=== PATIENT | male | born 1955 | race Caucasian/White ===

== ENCOUNTER → 2020-01-10 11:00 | Outpatient (BNVA) | payer SELFPAY | PROVIDERS: Family Provider Nurse Practitioner Family; PCP Nurse Practitioner Family; Visit Provider Nurse Practitioner Family | DX: E11.9 Type 2 diabetes mellitus without complications (principal) | CPT/HCPCS: 80053 ==

== ENCOUNTER → 2020-07-09 09:17 | Outpatient (BNVA) | payer SELFPAY | PROVIDERS: Family Provider Nurse Practitioner Family; PCP Dermatology; Visit Provider Nurse Practitioner Family | DX: E11.9 Type 2 diabetes mellitus without complications (principal) | CPT/HCPCS: 80053; 81003; 83036 ==

== ENCOUNTER → 2021-07-27 08:22 | Outpatient (BNVA) | payer SELFPAY | PROVIDERS: Family Provider Nurse Practitioner Family; PCP Nurse Practitioner Family; Visit Provider Dermatology | DX: Z01.89 Encounter for other specified special examinations (principal) ==

== ENCOUNTER → 2022-04-19 08:15 | Outpatient (BNVA) | payer SELFPAY | PROVIDERS: Family Provider Nurse Practitioner Family; PCP Nurse Practitioner Family; Visit Provider Dermatology | DX: Z01.89 Encounter for other specified special examinations (principal) ==

== ENCOUNTER → 2022-09-13 10:13 | Outpatient (BNVA) | payer MEDICARE, SELFPAY | PROVIDERS: Family Provider Nurse Practitioner Family; PCP Nurse Practitioner Family; Visit Provider Nurse Practitioner Family | DX: R05.9 Cough, unspecified (principal); Z20.822 Contact with and (suspected) exposure to COVID-19 | CPT/HCPCS: 87426 ==

== ENCOUNTER → 2022-10-18 08:34 | Outpatient (BNVA) | payer SELFPAY | PROVIDERS: Family Provider Nurse Practitioner Family; PCP Nurse Practitioner Family; Visit Provider Dermatology | DX: Z01.89 Encounter for other specified special examinations (principal) ==

== ENCOUNTER 2023-07-13 08:29 | Day surgery (SDC) | payer MEDICARE, SELFPAY ==
[2023-07-11 10:06] VITALS: BMI 34.9
[2023-07-13 08:46] VITALS: BP 154/90; PULSE 73; RESP 18; TEMP 36.4; O2SAT 96
[2023-07-13] MEDS: sodium chloride 0.9% 1,000 ML 30 ML IV (09:00)
--- NOTE | 2023-07-13 09:06 | P.ANESASSM_ITS ---
Pre-Anesthetic Assessment Height/Weight: Height 1.8 m Weight 113.852 kg Temp Pulse Resp BP Pulse Ox O2 Del Method 97.6 F 73 18 154/90 96 Room Air 07/13/23 08:46 07/13/23 08:46 07/13/23 08:46 07/13/23 08:46 07/13/23 08:46 07/13/23 08:46 Preop Diagnosis: screening Operation Date: 07/13/23 09:50 Proposed Procedures p Colonoscopy 35423,Z12.11(Not Applicable) - Robson Espinosa MD Familial anesthetic complications: none Was Beta Yazan taken within 24 hours: N/A Was Clonidine taken within 24 hours: N/A Last intake: Intake Last Liquid Date 07/12/23 Last Liquid Time 22:00 Last Solid Date 07/11/23 Last Solid Time 17:00 Last Intake: 22:00 Social No alcohol and No tobacco Exam alert, oriented x 3, clear to auscultation bilaterally and regular rate & rhythm Airway Submandibular: within normal limits Cervical ROM: within normal limits Mallampati: Class II Dentition: false (upper) Pulmonary None reported CV/HEM Hypertension Urinary Tract Infection Hepatic None reported GI None reported Metabolic Diabetes Mellitus (BS avg 200ish) and Morbid Obesity [facility] [place] None reported Neuropsych None reported Anesthetic Plan ASA status: 3 Anesthesia: MAC Risk of > 500 ml blood loss (7ml/kg in children): No Medications/Allergies Home Medications Medication Instructions Recorded Confirmed Last Taken Type lisinopril 20 mg tablet See Rx Instructions .Route 09/23/22 07/13/23 07/11/23 Rx .COMPLEX #90 tabs atorvastatin 20 mg tablet 20 mg PO DAILY 07/11/23 07/13/23 07/11/23 History glyburide 5 mg tablet 20 mg PO DAILY 07/11/23 07/13/23 07/11/23 History insulin glargine 100 unit/mL (3 20 unit SUBCUT BID 07/11/23 07/13/23 07/12/23 History mL) subcutaneous pen (Lantus Solostar U-100 Insulin) metformin 1,000 mg tablet 1,000 mg PO BID 07/11/23 07/13/23 07/11/23 History Allergies Allergy/AdvReac Type Severity Reaction Status Date / Time No Known Allergies Allergy Verified 07/13/23 08:43 Current Medications Generic Name Dose Route Start Last Admin Trade Name Howardq PRN Reason Stop Dose Admin Sodium Chloride 1,000 mls @ 30 mls/hr 07/13/23 08:45 07/13/23 09:00 Sodium Chloride 0.9% IV 30 mls/hr .Q24H EITAN Administration PFSH Anesthesia Medical History Cough COVID-19 virus infection Diabetes mellitus, type II Essential hypertension Mixed hyperlipidemia Social History Smoking and tobacco status: current every day smoker Data Anesthesia Cardiac Studies: No Data to Display
[2023-07-13 09:10] LABS: Glucose Point of Care 141 mg/dL (70-110)
--- NOTE | 2023-07-13 09:25 | W.PM.OPSFHP ---
Same Day Surgery H&P Indication for Procedure/HPI DATE OF PROCEDURE: July 13, 2023 CHIEF COMPLAINT/INDICATIONFOR SURGICAL PROCEDURE: Need for screening colonoscopy PREOP DIAGNOSIS: screening PLANNED PROCEDURE: Operation Date: 07/13/23 09:50 Proposed Procedures p Colonoscopy 07685,Z12.11(Not Applicable) - Robson Espinosa MD asymptomatic patient, with brother who had colon cancer, presents for screening. Medications/Allergies* Home Medications Medication Instructions Recorded Confirmed Type atorvastatin 20 mg tablet 20 mg PO DAILY 07/11/23 07/13/23 History glyburide 5 mg tablet 20 mg PO DAILY 07/11/23 07/13/23 History insulin glargine 100 unit/mL (3 20 unit SUBCUT BID 07/11/23 07/13/23 History mL) subcutaneous pen (Lantus Solostar U-100 Insulin) metformin 1,000 mg tablet 1,000 mg PO BID 07/11/23 07/13/23 History Allergies/Adverse Reactions Allergy/AdvReac Type Severity Reaction Status Date / Time No Known Allergies Allergy Verified 07/13/23 08:43 Current Medications: Generic Name Dose Route Start Last Admin Trade Name Freq PRN Reason Stop Dose Admin Sodium Chloride 1,000 mls @ 30 mls/hr 07/13/23 08:45 07/13/23 09:00 Sodium Chloride 0.9% IV 30 mls/hr .Q24H EITAN Administration Pertinent History/Comorbid Conditions* Medical History (Updated 10/19/21 @ 13:24 by EVELINA Sandy) Cough COVID-19 virus infection Diabetes mellitus, type II Essential hypertension Mixed hyperlipidemia Social History Smoking and tobacco status: current every day smoker Pertinent Exam Findings alert, oriented x 3, clear to auscultation bilaterally, regular rate & rhythm and procedure specific exam findings (Abdominal exam is benign) Recommendations Surgery/Procedure today Other Plans: After a complete history, physical examination and review of all available clinical data. I have offer screening colonoscopy as indicated by the current guidelines. I have discussed all the risks and benefits of the colonoscopy. Including, the risk of perforation requiring surgical intervention, rectal bleeding, incomplete colonoscopy requiring repeat procedure in 3 months, missed polyps, need for additional procedures. Patient shows understanding and wishes to proceed. Coding Level of Care Code Acute Code for Chg Fwd Diagnoses
[2023-07-13 10:14] VITALS: BP 144/88; PULSE 67; RESP 16; TEMP 36.3; O2SAT 98
[2023-07-13 10:22] VITALS: BP 119/78; PULSE 68; RESP 18; O2SAT 98
[2023-07-13 10:28] VITALS: BP 138/86; PULSE 69; RESP 18; O2SAT 96
--- NOTE | 2023-07-13 10:45 | ANE.PACU2 ---
Inpatient post-anesthesia follow up: Airway intact: Yes Vital signs: Temperature 97.3 F Pulse Rate 69 Respiratory Rate 18 Blood Pressure 138/86 Pulse Oximetry 96 Oxygen Delivery Me thod Room Air Oxygen Flow Rate 3 Fraction of Inspir ed Oxygen Hydration adequate: Yes Nausea and vomiting: No Pain level: 1 Mental status: Baseline
== END 2023-07-13 10:47 | disposition home or self-care (01) ==
PROVIDERS: PCP Family Medicine; Visit Provider Surgery
PROC: 0DJD8ZZ Inspection of Lower Intestinal Tract, Via Natural or Artificial Opening Endoscopic (ICD-10-PCS; CPT 45378; principal; 2023-07-13 09:50)
DX: Z12.11 Encounter for screening for malignant neoplasm of colon (principal); K57.30 Diverticulosis of large intestine without perforation or abscess without bleeding; I10 Essential (primary) hypertension; E11.9 Type 2 diabetes mellitus without complications; E66.01 Morbid (severe) obesity due to excess calories; Z68.35 Body mass index [BMI] 35.0-35.9, adult; Z79.84 Long term (current) use of oral hypoglycemic drugs; Z86.16 Personal history of COVID-19; E78.2 Mixed hyperlipidemia; F17.210 Nicotine dependence, cigarettes, uncomplicated
CPT/HCPCS: 36416; 82962; G0121; J2704; J7030

== ENCOUNTER 2023-10-09 09:37 | Outpatient (CLI) | payer MEDICARE, SELFPAY ==
--- NOTE | 2023-10-09 09:43 | XRR_ITS ---
PROCEDURE INFORMATION: Exam: XR Right Hand Exam date and time: 10/09/2023 9:53 AM Age: 68 years old Clinical indication: Pain; Hand; Right; Additional info: R finger pain TECHNIQUE: Imaging protocol: Radiologic exam of the right hand. Views: 1 or 2 views. COMPARISON: No relevant prior studies available. FINDINGS: Bones/joints: Mildly distracted long finger dorsal distal phalanx base mallet type fracture. Remaining joints are maintained. Soft tissues: Unremarkable. XR/XR hand RT 2V [id number] IMPRESSION: Mildly distracted long finger distal phalanx base mallet type fracture.
== END 2023-10-09 09:38 | disposition home or self-care (01) ==
LOC: RAD 09:38
PROVIDERS: PCP Family Medicine; Visit Provider Nurse Practitioner Family
DX: S62.632A Displaced fracture of distal phalanx of right middle finger, initial encounter for closed fracture (principal); X58.XXXA Exposure to other specified factors, initial encounter
CPT/HCPCS: 73120

== ENCOUNTER 2023-10-13 06:00 | Outpatient (CLI) | payer MEDICARE, SELFPAY | END 2023-10-13 23:59 | disposition home or self-care (01) | LOC: SOT 10-29 21:08 | PROVIDERS: PCP Family Medicine; Visit Provider Student in an Organized Health Care Education/Training Program | DX: Z46.89 Encounter for fitting and adjustment of other specified devices (principal); S62.609D Fracture of unspecified phalanx of unspecified finger, subsequent encounter for fracture with routine healing; X58.XXXD Exposure to other specified factors, subsequent encounter | CPT/HCPCS: 26750; 97760; 99204; L3925 ==

== ENCOUNTER → 2023-10-13 09:02 | Outpatient (BNVA) | payer MEDICARE, SELFPAY | PROVIDERS: PCP Family Medicine; Visit Provider Student in an Organized Health Care Education/Training Program | DX: M20.011 Mallet finger of right finger(s); S62.662A Nondisplaced fracture of distal phalanx of right middle finger, initial encounter for closed fracture; W22.8XXA Striking against or struck by other objects, initial encounter | CPT/HCPCS: 73130 ==

== ENCOUNTER → 2023-12-20 13:13 | Outpatient (BNVA) | payer MEDICARE, SELFPAY | PROVIDERS: PCP Family Medicine; Visit Provider Dermatology | DX: D48.5 Neoplasm of uncertain behavior of skin (principal); L57.0 Actinic keratosis; L82.1 Other seborrheic keratosis; L57.8 Other skin changes due to chronic exposure to nonionizing radiation; L85.3 Xerosis cutis; D18.01 Hemangioma of skin and subcutaneous tissue; S60.031A Contusion of right middle finger without damage to nail, initial encounter; X58.XXXA Exposure to other specified factors, initial encounter | CPT/HCPCS: 17000; 69100; 99203 ==

== ENCOUNTER → 2024-01-22 10:58 | Outpatient (BNVA) | payer MEDICARE, SELFPAY | PROVIDERS: PCP Family Medicine; Visit Provider Dermatology | DX: D04.21 Carcinoma in situ of skin of right ear and external auricular canal (principal); L57.0 Actinic keratosis | CPT/HCPCS: 17000; 17281 ==

== ENCOUNTER → 2024-05-23 10:07 | Outpatient (BNVA) | payer MEDICARE, SELFPAY | PROVIDERS: PCP Family Medicine; Visit Provider Nurse Practitioner Family | DX: D48.5 Neoplasm of uncertain behavior of skin (principal); L57.0 Actinic keratosis; L82.1 Other seborrheic keratosis; D18.01 Hemangioma of skin and subcutaneous tissue; Z85.828 Personal history of other malignant neoplasm of skin | CPT/HCPCS: 11102; 17000; 99213 ==

== ENCOUNTER → 2024-06-27 07:54 | Outpatient (BNVA) | payer MEDICARE, SELFPAY | PROVIDERS: PCP Family Medicine; Visit Provider Dermatology | DX: C44.622 Squamous cell carcinoma of skin of right upper limb, including shoulder (principal); D22.5 Melanocytic nevi of trunk; L57.0 Actinic keratosis | CPT/HCPCS: 11602; 11603; 13101; 13121; 17000 ==

== ENCOUNTER → 2024-11-13 07:58 | Outpatient (BNVA) | payer MEDICARE, SELFPAY | PROVIDERS: PCP Family Medicine; Visit Provider Nurse Practitioner Family | DX: D18.01 Hemangioma of skin and subcutaneous tissue (principal); L82.1 Other seborrheic keratosis; L81.4 Other melanin hyperpigmentation; Z08 Encounter for follow-up examination after completed treatment for malignant neoplasm; Z85.828 Personal history of other malignant neoplasm of skin | CPT/HCPCS: 17000; 99213 ==

== ENCOUNTER → 2025-05-13 07:57 | Outpatient (BNVA) | payer MEDICARE, OTHER, SELFPAY | PROVIDERS: PCP Family Medicine; Visit Provider Nurse Practitioner Family | DX: D18.01 Hemangioma of skin and subcutaneous tissue (principal); L81.4 Other melanin hyperpigmentation; L82.1 Other seborrheic keratosis; L71.8 Other rosacea; Z08 Encounter for follow-up examination after completed treatment for malignant neoplasm; Z85.828 Personal history of other malignant neoplasm of skin; L57.0 Actinic keratosis | CPT/HCPCS: 17000; 99213 ==